=== PATIENT | female | born 1990 ===

== ENCOUNTER 2018-01-14 13:15 | Inpatient (IN) | payer OTHER ==
[~2018-01-14] VITALS: Ht 157.5 cm; Wt 54.9 kg
[~2018-01-14 13:15] MED LIST: AZITHROMYCIN250 MG PO; ZITHROMAX TRI-500 MG PO
[2018-01-29] MEDS ORDERED: PRENATAL TABLE1 EAC4 PO (13:08)
== END 2018-01-31 13:44 | DRG 775 ==
LOC: LDR 01-29 12:13 → OB/GYN 01-29 18:10 → LDR 02-10 13:15
PROC: 10E0XZZ Delivery of Products of Conception, External Approach (ICD-10-PCS; principal; 2018-01-29)
PROC: 4A1HXCZ Monitoring of Products of Conception, Cardiac Rate, External Approach (ICD-10-PCS; 2018-01-29)
DX: O80 Encounter for full-term uncomplicated delivery (principal); Z3A.38 38 weeks gestation of pregnancy; Z37.0 Single live birth